=== PATIENT | female | born 1980 | race Asian ===

== ENCOUNTER 2023-02-23 16:43 | Emergency (ER) | payer OTHER ==
[2023-02-23 16:56] VITALS: BP 153/93
--- NOTE | 2023-02-23 17:23 | ED Physician Documentation ---
PD HPI HEAD INJURY - Stated complaint Stated Complaint: HEAD INJURY - Chief complaint Chief Complaint: Trauma Hd/Nk - History obtained from History obtained from: Patient - Additional information Additional information: 42-year-old female presents after work-related injury when that she was struck in the left side of the forehead with a baking gomez. She was reaching up to get it while at work and it is a large gomez for commercial baking and it struck her the corner of it struck her on the left side of the forehead. She felt dazed but did not lose consciousness. She has felt somewhat nauseous since then and has had a headache but no acute mental status changes, no ataxia, no dizziness. She is not on any blood thinners. She does have a history of migraines and wonders if this has triggered a migraine as she does often get nausea with her headaches. Patient also notes a history of a concussion about 13 years ago and she was concerned that that might be significant. Review of Systems Constitutional: reports: Reviewed and negative Eyes: reports: Reviewed and negative Ears: reports: Reviewed and negative Nose: reports: Reviewed and negative Throat: reports: Reviewed and negative Cardiac: reports: Reviewed and negative Respiratory: reports: Reviewed and negative GI: reports: Nausea, Vomiting. denies: Abdominal Pain, Abdominal Swelling : reports: Reviewed and negative Skin: reports: Reviewed and negative Musculoskeletal: reports: Reviewed and negative Neurologic: reports: Headache, Head injury. denies: Generalized weakness, Focal weakness, Numbness, Difficulty speaking, Near syncope, LOC PD PAST MEDICAL HISTORY - Past Medical History Past Medical History: No - Present Medications Home Medications: Ambulatory Orders Medication Instructions Recorded Confirmed Ondansetron Odt [Zofran] 4 mg TL Q6H PRN #10 tablet 02/23/23 - Allergies Allergies/Adverse Reactions: Allergies Allergy/AdvReac Type Severity Reaction Status Date / Time No Known Drug Allergies Allergy Verified 02/23/23 16:53 - Social History Does the pt smoke?: No Smoking Status: Never smoker PD ED PE NORMAL - Vitals Vital signs reviewed: Yes - General General: Alert and oriented X 3, No acute distress, Well developed/nourished - HEENT HEENT: Atraumatic, PERRL, EOMI, Moist mucous membranes, Other (No hematoma or ot her visible bruising on the forehead) - Neck Neck: Supple, no meningeal sign, No bony TTP, C-Spine cleared by NEXUS criteria - Cardiac Cardiac: RRR - Respiratory Respiratory: No respiratory distress, Clear bilaterally - Derm Derm: Normal color, Warm and dry, No rash - Neuro Neuro: Alert and oriented X 3, No motor deficit, No sensory deficit, Normal speech Eye Opening: Spontaneous Motor: Obeys Commands Verbal: Oriented GCS Score: 15 - Psych Psych: Normal mood, Normal affect Results - Vitals Vitals: Vital Signs - 24 hr 02/23/23 16:51 Temperature 36.8 C Heart Rate 83 Respiratory 14 Rate Blood Pressure 153/93 H O2 Saturation 100 Oxygen O2 Source Room air PD Medical Decision Making - ED course Complexity details: considered differential, d/w patient ED course: 42-year-old female presents after being struck in the head by a large baking gomez about 4 hours ago. She has had some subsequent nausea but no other findings, no acute neurologic changes. Her exam here is very reassuring, there is no hematoma or scalp laceration or depression. Her neurologic exam is completely normal. Per [facility] CT head guidelines, CT head is not indicated. The patient was advised to utilize cool compress, Tylenol and ibuprofen for pain I will give her short course of Zofran to use as needed. I did fill out the L&I paperwork and the hardcopy was returned to the patient. I discussed return precautions in detail with the patient if new or worsening symptoms and she was given 2 days off of work to rest. I advised her to avoid any activities that could result in trauma and to allow for brain rest and physical rest during this time. Departure - Departure Disposition: 01 Home, Self Care Clinical Impression: Head injury Qualifiers: Encounter type: initial encounter Qualified Code(s): S09.90XA - Unspecified injury of head, initial encounter Condition: Good Instructions: ED Head Injury Closed Prescriptions: Ondansetron Odt [Zofran] 4 mg TL Q6H PRN #10 tablet PRN Reason: Nausea / Vomiting Comments: Your exam is reassuring. Per head injury guidelines, no imaging is recommended.You may have mild concussion and should rest for the next 1-2 days until symptoms improve. You can take tylenol or motrin as needed and I have given you some nausea medication as well. Return if your symptoms worsen. Forms: Activity restrictions Discharge Date/Time: 02/23/23 17:39
[2023-02-23] MEDS ORDERED: ONDANSETRON ODT 4 MG TABLET TL STA (17:25)
== END 2023-02-23 17:39 | disposition home or self-care (01) ==
LOC: ED 16:43
DX: S09.90XA Unspecified injury of head, initial encounter (principal); W22.8XXA Striking against or struck by other objects, initial encounter; Y99.0 Civilian activity done for income or pay
CPT/HCPCS: 1040M; 99282; 99283

== ENCOUNTER 2023-04-23 08:56 | Outpatient (CLI) | payer OTHER ==
[2023-04-23 12:33] LABS: % IRON SATURATION 3 % (20-50); IRON 13 ug/dL (50-212); TOTAL IRON BINDING CAPACITY 484 ug/dL (250-450); TRANSFERRIN 346 mg/dL (203-362)
== END 2023-04-23 08:57 | disposition home or self-care (01) ==
LOC: LAB.N 08:56
PROVIDERS: ATTEND Family Medicine
DX: D50.9 Iron deficiency anemia, unspecified (principal)
CPT/HCPCS: 36415; 83540; 84466

== ENCOUNTER 2023-05-19 14:25 | Outpatient (CLI) | payer OTHER ==
[2023-05-19 18:16] LABS: FERRITIN 34.2 ng/mL (11.0-306.8)
[2023-05-19 18:17] LABS: ABSOLUTE RETICS # AUTO 0.131 10^6/uL (0.020-0.110); BASOPHILS # (AUTO) 0.1 10^3/uL (0.0-0.1); BASOPHILS % (AUTO) 1.7 %; EOSINOPHILS # (AUTO) 0.2 10^3/uL (0.0-0.7); EOSINOPHILS % (AUTO) 2.1 %; HCT - HEMATOCRIT 44.8 % (37.0-47.0); HGB - HEMOGLOBIN 12.8 g/dL (12.0-16.0); LYMPHOCYTES # (AUTO) 1.8 10^3/uL (1.5-3.5); LYMPHOCYTES % (AUTO) 23.7 %; MEAN CORPUSCULAR HEMOGLOBIN 23.2 pg (27.0-31.0); MEAN CORPUSCULAR HGB CONC 28.6 g/dL (32.0-36.0); MEAN CORPUSCULAR VOLUME 81.3 fL (81.0-99.0); MEAN PLATELET VOLUME 10.5 fL (7.9-10.8); MONOCYTES # (AUTO) 0.5 10^3/uL (0.0-1.0); MONOCYTES % (AUTO) 6.9 %; NEUTROPHILS % (AUTO) 65.2 %; PLT - PLATELET COUNT 440 10^3/uL (130-450); RED BLOOD COUNT 5.51 10^6/uL (4.20-5.40); RETICULOCYTE COUNT % (AUTO) 2.38 % (0.5-2.3); WHITE BLOOD COUNT 7.7 x10^3/uL (4.8-10.8)
[2023-05-19 20:01] LABS: PLATELET ESTIMATE, MANUAL NORMAL (130-450,000) (NORMAL); PLATELET MORPHOLOGY NORMAL APPEARANCE (NORMAL); SLIDE REVIEW? Indicated
== END 2023-05-19 14:26 | disposition home or self-care (01) ==
LOC: LAB.N 14:25
PROVIDERS: ATTEND Physician Assistant
DX: D50.8 Other iron deficiency anemias (principal)
CPT/HCPCS: 36415; 82728; 83540; 84466; 85025; 85045

== ENCOUNTER 2023-10-07 10:30 | Outpatient (CLI) | payer OTHER | END 2023-10-07 10:45 | disposition home or self-care (01) | LOC: LAB.N 10:30 | PROVIDERS: ATTEND Family Medicine | DX: N91.2 Amenorrhea, unspecified (principal); R35.0 Frequency of micturition | CPT/HCPCS: 36415; 84702; 87077; 87086; 87181 ==

== ENCOUNTER 2023-10-11 11:38 | Outpatient (CLI) | payer OTHER ==
[2023-10-11 11:56] LABS: BASOPHILS # (AUTO) 0.1 10^3/uL (0.0-0.1); BASOPHILS % (AUTO) 1.2 %; EOSINOPHILS # (AUTO) 0.3 10^3/uL (0.0-0.7); HGB - HEMOGLOBIN 12.7 g/dL (12.0-16.0); LYMPHOCYTES # (AUTO) 2.5 10^3/uL (1.5-3.5); LYMPHOCYTES % (AUTO) 33.4 %; MEAN CORPUSCULAR HEMOGLOBIN 26.9 pg (27.0-31.0); MEAN CORPUSCULAR VOLUME 86.9 fL (81.0-99.0); MEAN PLATELET VOLUME 9.7 fL (7.9-10.8); MONOCYTES # (AUTO) 0.5 10^3/uL (0.0-1.0); MONOCYTES % (AUTO) 7.2 %; NEUTROPHILS % (AUTO) 54.1 %; PLT - PLATELET COUNT 387 10^3/uL (130-450); RED BLOOD COUNT 4.72 10^6/uL (4.20-5.40); RED CELL DISTRIBUTION WIDTH 15.4 % (12.0-15.0); WHITE BLOOD COUNT 7.5 x10^3/uL (4.8-10.8)
== END 2023-10-11 11:39 | disposition home or self-care (01) ==
LOC: LAB 11:38
PROVIDERS: ATTEND Obstetrics & Gynecology
DX: Z01.812 Encounter for preprocedural laboratory examination (principal); O02.1 Missed abortion
CPT/HCPCS: 36415; 85025; 86850; 86900; 86901

== ENCOUNTER 2023-10-12 07:17 | Day surgery (SDC) | payer OTHER ==
[2023-10-12] MEDS: LACTATED RINGERS 1,000 ML IV ONE (07:21)
[2023-10-12] MEDS ORDERED: LIDOCAINE-MPF 2% 5 ML VIAL ONE (08:21)
[2023-10-12] MEDS ORDERED: MIDAZOLAM 2 MG/2 ML VIAL ONE (08:21)
[2023-10-12] MEDS ORDERED: PROPOFOL 200 MG/20 ML VIAL IVP ONE (08:21)
[2023-10-12] MEDS ORDERED: fentaNYL 100 MCG/2 ML VIAL ONE (08:21)
--- NOTE | 2023-10-12 08:26 | HISTORY & PHYSICAL EXAMINATION ---
HPI - History Obtained From Records Reviewed: Old records reviewed History obtained from: Patient PMH/PSH - Past Medical History Cardiovascular: positive: None Respiratory: positive: None Endocrine/Autoimmune: positive: HyPERthyroidism GI: positive: GERD : positive: None Musculoskeletal: positive: None MRSA Hx?: No Social & Family Hx - Social History Does the pt smoke?: No Smoking Status: Never smoker Meds/Allgy - Home Medications Home Medications: Ambulatory Orders Medication Instructions Recorded Confirmed No122/Iron/Folic Acid 1 tab PO DAILY 10/11/23 10/12/23 [ Multi Tablet] - Allergies Allergies/Adverse Reactions: Allergies Allergy/AdvReac Type Severity Reaction Status Date / Time No Known Drug Allergies Allergy Verified 02/23/23 16:53 Exam - Vital Signs Vital Signs: Vital Signs x48h Temp Pulse Resp BP Pulse Ox O2 Flow Rate 10/12/23 07:39 148/83 H 10/12/23 07:20 97.2 F L 93 18 135/94 H 99 0
[2023-10-12] MEDS: LIDOCAINE 1%-EPI 1:100000 50 ML VIAL SUBQ ONE ×2 (08:27)
[2023-10-12] MEDS ORDERED: LIDOCAINE 1%-EPI 1:100000 20 ML MDV ONE (08:28)
--- NOTE | 2023-10-12 08:31 | ANESTHESIA ---
Pre-Anesthesia VS, & Labs - Diagnosis missed ab - Procedure d/c Vital Signs: Temp Pulse Resp BP Pulse Ox O2 Flow Rate 36.2 C L 93 18 148/83 H 99 0 10/12/23 07:20 10/12/23 07:20 10/12/23 07:20 10/12/23 07:39 10/12/23 07:20 10/12/23 07:20 Height: 5 ft 3 in Weight (kg): 66 kg Body Mass Index: 25.7 BMI Classification: Overweight - Is Patient ?: Yes Home Medications and Allergies Home Medications: Ambulatory Orders No122/Iron/Folic Acid [ Multi Tablet] 1 tab PO DAILY 10/11/23 Active Medications Doxycycline Hyclate 200 mg/ (Sodium Chloride) 270 mls @ 100 mls/hr IV ONCE ONE Stop: 10/12/23 11:41 No122/Iron/Folic Acid [ Multi Tablet] 1 tab PO DAILY 10/11/23 Allergies/Adverse Reactions: Allergies Allergy/AdvReac Type Severity Reaction Status Date / Time No Known Drug Allergies Allergy Verified 02/23/23 16:53 Anes History & Medical History - Anesthetic History Anesthesia Complications: reports: No previous complications Family history of Anesthesia Complications: Denies Family history of Malignant Hyperthermia: Denies - Medical History Cardiovascular: reports: None Pulmonary: reports: None, Shortness of breath (sometimes sob w exercise; says asthma ruled out, denies chest pain) Gastrointestinal: reports: GERD (occasional heartbur/ and antacids, no problems today) Urinary: reports: None Musculoskeletal: reports: None Endocrine/Autoimmune: reports: HyPERthyroidism Smoking Status: Never smoker Exam General: Alert Dental: WNL Mouth Openin Fingerbreadth Neck Mobility: Normal (slept funny, some left neck soreness) Mallampati classification: II Thyromental Distance: 4-6 cm Respiratory: Lungs clear Cardiovascular: Regular rate Mental/Cognitive Status: Alert/Oriented X3 Plan Anesthesia Type: General Consent for Procedure(s) Verified and Reviewed: Yes Code Status: Attempt Resuscitation ASA classification: 2-Mild systemic disease Is this case an emergency?: No
[2023-10-12] MEDS ORDERED: METOCLOPRAMIDE 10 MG/2 ML VIAL IVP PRN (08:37)
[2023-10-12] MEDS ORDERED: MORPHINE 2 MG/ML CARPUJECT IVP PRN (08:37)
[2023-10-12] MEDS ORDERED: ATROPINE ABBOJECT 1 MG/10 ML SYRINGE IVP PRN (08:37)
[2023-10-12] MEDS ORDERED: ePHEDrine 50 MG/ML VIAL IVP PRN (08:37)
[2023-10-12] MEDS ORDERED: HYDROmorphone 0.5 MG/0.5 ML SYRINGE IVP PRN (08:37)
[2023-10-12] MEDS ORDERED: ONDANSETRON 4 MG/2 ML VIAL IVP PRN (08:37)
[2023-10-12] MEDS ORDERED: NALOXONE 0.4 MG/ML VIAL IVP PRN (08:37)
[2023-10-12] MEDS ORDERED: fentaNYL 100 MCG/2 ML VIAL IVP PRN (08:37)
[2023-10-12] MEDS ORDERED: ONDANSETRON 4 MG/2 ML VIAL ONE (08:46)
[2023-10-12] MEDS ORDERED: DEXAMETHASONE 4 MG/ML VIAL ONE (08:46)
[2023-10-12] MEDS ORDERED: LACTATED RINGERS 1,000 ML IV SCH (09:00)
[2023-10-12] MEDS ORDERED: DOXYCYCLINE INJ 200 MG in SODIUM CHLORIDE 0.9% 250 ML IV ONE (09:00)
[2023-10-12] MEDS ORDERED: KETOROLAC 30 MG/ML VIAL ONE (09:39)
[2023-10-12] MEDS: LACTATED RINGERS 300 ML IV ONE ×2 (09:51→10:07)
[2023-10-12] MEDS ORDERED: HYDROcod/ACETAM 10 MG/325 MG TABLET PO PRN (10:22)
--- NOTE | 2023-10-12 10:25 | OPERATIVE REPORT ---
Operative Report - General Planned Procedure: Suction dilation and curettage Pre-Op Diagnosis: Anembryonic demise Procedure Performed: Suction dilation and curettage, cervical polypectomy Post Op Diagnosis: Anembryonic demise, cervical polyp, inevitable - Procedure Note Primary Surgeon: Nick Rousseau MD Anesthesia Provider: Kyle Pascual CRNA Anesthesia Technique: Other (General) Pathology: Endometrial contents Cervical polyp IV Fluids (mL): 600 Estimated Blood Loss (mL): 400 Urine Output (mL): 0 (Voided before procedure) Findings: Cervical polyp protruding from the cervix. Dilated cervical canal with bleeding likely an inevitable , gestational sac within the uterus. - Other Other Information/Narrative: Suction D&C Prior to the procedure, patient received 200 mg of oral doxycycline. Patient was placed in the dorsal high lithotomy position with great white. General anesthesia was obtained without difficulty. The pelvis was prepped and the pat ient was draped in the usual fashion. Careful pelvic examination was performed to locate the position of the uterus and noted dilation of the cervical os. A bivalve speculum was placed in the vagina and the cervix was grasped with a single-tooth tenaculum and gently drawn towards the vaginal outlet. A paracervical block was performed using lidocaine with epinephrine. Protruding from the cervical os was a massive tissue, initially thought to be part of the , and this was grasped with a ring forcep and gently removed. After removal, it appeared to be a cervical polyp and was sent to pathology. The cervical os was already dilated and did not require the use of dilators but was measured to 7 mm. A 7 mm rigid, curved suction catheter was used for suction. Under ultrasound guidance, the catheter was placed without suction into the uterine cavity. Blood and products of conception were collected in the section catheter container. After adequate removal of products, a sharp curette was used to remove additional products of conception adherent to uterine toth. The products were collected on a Telfa pad. After removing products of conception and feeling circumferential uterine cri, adequate hemostasis was noted from coming from the uterus and the tenaculum was removed. Bleeding from the tenaculum sites was stopped with electrocautery. The polyp site was 6 bleeding initially attempted to throw a suture, however initially were unsuccessful, but the bleeding was hemostatic after being grasped with the ring forcep. Upon examination the patient was hemostatic and all instruments were removed. Patient was returned to dorsal supine position and awoke from anesthesia. She was taken to the PACU in good condition.
[2023-10-12 11:14] VITALS: BP 136/85; O2SAT 100
--- NOTE | 2023-10-12 12:33 | ANESTHESIA POST OP EVALUATION ---
Anesthesia Post Eval - Post Anesthesia Eval Vitals: Last Vital Signs Temp 36.1 C L 10/12/23 10:30 Pulse 84 10/12/23 11:00 Resp 16 10/12/23 11:00 BP 136/85 H 10/12/23 11:00 Pulse Ox 100 10/12/23 11:00 O2 Flow Rate 0 10/12/23 07:20 CV Function Including HR & BP: Stable Pain Control: Satisfactory Nausea & Vomiting: Negative Mental Status: Baseline Respiratory Status: Airway Patent Hydration Status: Satisfactory Anesthesia Complications: None
== END 2023-10-12 07:18 | disposition home or self-care (01) ==
LOC: SDS 07:17
PROVIDERS: ATTEND Obstetrics & Gynecology
PROC: 10D17ZZ Extraction of Products of Conception, Retained, Via Natural or Artificial Opening (ICD-10-PCS; principal; 2023-10-12 08:30)
DX: O02.1 Missed abortion (principal); N84.1 Polyp of cervix uteri
CPT/HCPCS: 59820; J3490; J7120